=== PATIENT | female | born 1935 | race Caucasian/White ===

== ENCOUNTER → 2019-06-27 | Outpatient (CLI) | payer MEDICARE | END | disposition home or self-care (01) | LOC: RAH 08:53 | PROVIDERS: ATTEND Physical Medicine & Rehabilitation | DX: M47.26 Other spondylosis with radiculopathy, lumbar region (principal); M41.86 Other forms of scoliosis, lumbar region | CPT/HCPCS: 72114 ==

== ENCOUNTER → 2022-07-20 | Outpatient (CLI) | payer MEDICARE | END | disposition home or self-care (01) | LOC: SHCH 09:27 | PROVIDERS: ATTEND Internal Medicine Cardiovascular Disease | DX: R09.89 Other specified symptoms and signs involving the circulatory and respiratory systems (principal) | CPT/HCPCS: 93880 ==

== ENCOUNTER → 2023-05-08 | Outpatient (CLI) | payer MEDICARE ==
[2023-05-08 12:47] LABS: CREATININE 0.8 mg/dL (0.5-1.5)
== END | disposition home or self-care (01) ==
LOC: LAB 11:58
PROVIDERS: ATTEND Otolaryngology Plastic Surgery within the Head & Neck
DX: D32.9 Benign neoplasm of meninges, unspecified (principal)
CPT/HCPCS: 36415; 82565; 84520

== ENCOUNTER → 2023-05-21 | Outpatient (CLI) | payer MEDICARE ==
[~2023-05-21] MED LIST: GADOTERATE MEGLUMINE 10 MMOL/20 ML VIAL IV ONE
== END | disposition home or self-care (01) ==
LOC: RAH 14:43
PROVIDERS: ATTEND Otolaryngology Plastic Surgery within the Head & Neck
DX: D32.9 Benign neoplasm of meninges, unspecified (principal)
CPT/HCPCS: 70553; A9575

== ENCOUNTER → 2023-11-20 | Outpatient (CLI) | payer MEDICARE ==
[2023-11-20 10:30] LABS: CREATININE 0.8 mg/dL (0.5-1.0)
== END | disposition home or self-care (01) ==
LOC: LAB 09:55
PROVIDERS: ATTEND Neuromusculoskeletal Medicine & OMM
DX: D32.9 Benign neoplasm of meninges, unspecified (principal)
CPT/HCPCS: 36415; 82565; 84520

== ENCOUNTER → 2023-11-26 | Outpatient (CLI) | payer MEDICARE | END | disposition home or self-care (01) | LOC: RAH 12:50 | PROVIDERS: ATTEND Neuromusculoskeletal Medicine & OMM | DX: D32.0 Benign neoplasm of cerebral meninges (principal); I51.7 Cardiomegaly; Z98.890 Other specified postprocedural states | CPT/HCPCS: 70553; A9575 ==

== ENCOUNTER → 2024-03-31 | Outpatient (CLI) | payer MEDICARE ==
--- NOTE | 2024-04-01 07:27 | HMCSR ---
APPROVED REPORT EXAM: Two-dimensional and M-mode echocardiogram with Doppler and color Doppler. INDICATION 2D Dimensions RVDd3.2 cmLVEF(%)65.8 (>50%)LVED Vol(simp.)77.0 mL IVSd1.0 (0.7-1.1cm)FS(%)36 %LVES Vol(simp.)30.0 mL LVDd4.3 (3.8-5.6cm)Ao Root(2D)3.0 (2.0-3.7cm)LVEF(%, simp.)61 % PWd0.9 (0.7-1.1cm)LVOT diam2.0 (1.8-2.4cm)LA ESV INDEX (BP)53.40 mL/m2 LVDs2.8 (2.5-4.0cm)IVC diam1.7 cm Aortic Valve AoV Vmax2.3 m/Nilo Peak GR21.8 mmHgLVOT Vmax1.5 m/s AoV VTI0.6 mAo Mean GR12.8 mmHgLVOT VTI0.35 m SOSA (VMAX)1.7 cm2Al P1/2T423 msAVA (VTI) 1.7 cm2 Mitral Valve MV E Vmax96.6 cm/sDECEL Hcfo763 ms MV A Vmax63.7 cm/sP 1/2 T47 ms E/A ratio1.5MVA (PHT)4.6 cm2 MR Max PG139 mmHg TDI E/E' Himikw14.6E/E' Zyiddqi95.4 Pulmonary Valve PV Vmax1.0 m/sPV VTI0.25 mPV Mean GR2 mmHg PV Peak GR3.7 mmHgPI End Lyubov. Fausto 1.3 cm/s Tricuspid Valve TR Vmax2.9 m/sRAP (EST) 3 lbCdGLZD14.5 mmHg TR Peak GR32.5 mmHg Left Ventricle The left ventricle structure and function is normal. There is normal LV segmental wall motion. There is normal left ventricular wall thickness. LVEF is 60-65%. Grade 2 diastolic dysfunction. Right Ventricle The right ventricle is normal size. The right ventricular systolic function is normal. Atria The left atrium is severely dilated. The right atrium is moderately dilated. Aortic Valve Aortic valve is trileaflet. Aortic valve is mildly calcified. Mild aortic regurgitation. Mild aortic stenosis. Calculated aortic valve area is 1.7 cm2 with maximum pressure gradient of 21.8 mmHg and opal n pressure gradient of 12.8 mmHg. Mitral Valve Mitral valve leaflets are mildly sclerotic but open well. Mitral regurgitation is trace to mild. Ther e is no mitral valve stenosis. Tricuspid Valve The tricuspid valve leaflets appear normal. There is trace to mild tricuspid regurgitation. Right inessa tricular systolic pressure is estimated at 30-40 mmHg. Pulmonic Valve Pulmonic valve is not well visualized. There is trace to mild valvular regurgitation. Great Vessels The aortic root is normal in size. The IVC is normal in size and collapses >50% with inspiration. Pericardium No pericardial effusion. Conclusion LVEF is 60-65%. Grade 2 diastolic dysfunction. Mild aortic regurgitation. Mild aortic stenosis. Calculated aortic valve area is 1.7 cm2 with maximum pressure gradient of 21.8 mmHg and mean pressure gradient of 12.8 mmHg. Mitral regurgitation is trace to mild. There is trace to mild tricuspid regurgitation. Right ventricular systolic pressure is estimated at 30-40 mmHg.
== END | disposition home or self-care (01) ==
LOC: SHCH 12:56
PROVIDERS: ATTEND Internal Medicine Cardiovascular Disease
DX: I08.8 Other rheumatic multiple valve diseases (principal); I35.0 Nonrheumatic aortic (valve) stenosis
CPT/HCPCS: 93306

== ENCOUNTER → 2024-04-09 | Outpatient (CLI) | payer MEDICARE ==
--- NOTE | 2024-04-09 15:33 | HMCIMG ---
Exam: NONCONTRAST CT BRAIN REASON: SYNCOPE AND COLLAPSE. COMPARISON: None. TECHNIQUE: Images are obtained from vertex to the skull base. The exam was performed without IV contrast. FINDINGS: There are generous ventricles and sulci. There is decreased attenuation in the deep central white matter. These findings are consistent with atrophy. There are no acute appearing focal parenchymal lesions. There is no evidence of mass, intracranial hemorrhage or acute stroke. Posterior fossa and brainstem structures appear unremarkable. There are no abnormal fluid collections. Extra cranial soft tissues appear unremarkable as well. IMPRESSION: 1. Atrophy, no acute finding. CT was performed with one or more following dose reduction techniques: automated exposure control, adjustment of the mA and kv according to patient's size, or use of a iterative reconstruction technique.
== END | disposition home or self-care (01) ==
LOC: RAH 12:47
PROVIDERS: ATTEND Internal Medicine Nephrology
DX: S09.90XA Unspecified injury of head, initial encounter (principal); G31.9 Degenerative disease of nervous system, unspecified; R55 Syncope and collapse; X58.XXXA Exposure to other specified factors, initial encounter; Y93.89 Activity, other specified; Y92.89 Other specified places as the place of occurrence of the external cause; Y99.8 Other external cause status
CPT/HCPCS: 70450

== ENCOUNTER → 2024-11-17 | Outpatient (CLI) | payer MEDICARE ==
[2024-11-17 10:37] LABS: CREATININE 0.7 mg/dL (0.5-1.0); GLOMERULAR FILTR. RATE CALC 83.0 mL/min (>90); UREA NITROGEN, BLOOD 24.0 mg/dL (7-18)
== END | disposition home or self-care (01) ==
LOC: LAB 09:52
PROVIDERS: ATTEND Neuromusculoskeletal Medicine & OMM
DX: D32.9 Benign neoplasm of meninges, unspecified (principal)
CPT/HCPCS: 36415; 82565; 84520

== ENCOUNTER → 2024-11-20 | Outpatient (CLI) | payer MEDICARE ==
--- NOTE | 2024-11-21 17:19 | HMCIMG ---
EXAM: MR Brain Without and With IV Contrast CLINICAL HISTORY: Benign neoplasm of the meninges. TECHNIQUE: Multiplanar multi-sequence MRI of the brain. CONTRAST: Yes. COMPARISON: MRI dated 11/26/23. FINDINGS: Homogeneously enhancing extra-axial, dural based mass measuring approximately 3.9 x 3.7 x 2 cm along the right frontal convexity and anterior falx causing mild indentation on the underlying right frontal lobe. Mild thickening of the dura along the bilateral convexities and along the anterior falx. Mild diffuse age-related cerebral atrophy is evident by dilated lateral ventricles, prominent cisterns, and sulcal spaces. Discrete and confluent T2, FLAIR hyperintense signal noted in the white matter of bilateral cerebral hemispheres, likely chronic small vessel ischemic changes. Partial empty sella noted. No evidence of acute cortical infarction, or hemorrhage. No abnormal extra-axial fluid collection is present. The marrow signal within the skull base and calvarium is intact. Moderate-sized mucus retention cysts in the bilateral nodular sinuses. Severe bilateral frontal sinusitis. Remaining paranasal sinuses and mastoid air cells are clear. Bilateral intraocular lens implants in situ. IMPRESSION: No acute intracranial abnormality. Homogeneously enhancing extra-axial, dural based mass along the right frontal convexity and anterior falx causing mild indentation on the underlying right frontal lobe consistent with meningioma. Stable since prior study. Mild diffuse age-related cerebral atrophy and chronic small vessel ischemic changes, stable since prior study. /[place]
== END | disposition home or self-care (01) ==
LOC: RAH 07:53
PROVIDERS: ATTEND Neuromusculoskeletal Medicine & OMM
DX: D32.9 Benign neoplasm of meninges, unspecified (principal); I67.82 Cerebral ischemia; J34.1 Cyst and mucocele of nose and nasal sinus; J32.1 Chronic frontal sinusitis; G31.1 Senile degeneration of brain, not elsewhere classified; G93.89 Other specified disorders of brain; Z96.89 Presence of other specified functional implants
CPT/HCPCS: 70553; A9575